=== PATIENT | male | born 1970 | race Caucasian/White ===

== ENCOUNTER 2016-11-30 17:18 | Emergency (ER) | payer OTHER ==
[~2016-11-30] VITALS: Ht 188 cm; Wt 105.2 kg
[2016-11-30 17:34] VITALS: BP 129/73
[2016-11-30] MEDS ORDERED: LIDOCAINE 1%, 20ML ONE (18:13)
[2016-11-30] MEDS ORDERED: DIPH,PERTUSS(ACELL),TET VAC/PF 0.5 ML IM-VACC ONE ×3 (18:13→18:30)
[2016-11-30] MEDS ORDERED: LIDOCAINE 2%, 20ML INFIL ONE (18:30)
[2016-11-30] MEDS ORDERED: BACITRACIN ZINC OINT 500U/GM, 0.9 GM ONE (18:40)
== END 2016-11-30 18:47 | disposition home or self-care (01) ==
LOC: ED 18:41
DX: S61.213A Laceration without foreign body of left middle finger without damage to nail, initial encounter (principal); W31.1XXA Contact with metalworking machines, initial encounter; Y93.89 Activity, other specified; Y92.009 Unspecified place in unspecified non-institutional (private) residence as the place of occurrence of the external cause; Y99.8 Other external cause status; Z23 Encounter for immunization
CPT/HCPCS: 90471; 90715